=== PATIENT | female | born 1995 | race Hispanic/Latino ===

== ENCOUNTER 2021-07-16 07:04 | Day surgery (SDC) | payer SELFPAY ==
[2021-07-16 07:37] VITALS: BMI 29.5
[2021-07-16 08:37] LABS: Fetal Membranes Rupture No Membranes Rupture (No Rupture)
[2021-07-16] MEDS ORDERED: hydrALAZINE 20 MG/ML VIAL SLOW IVP PRN (09:29)
== END 2021-07-16 09:44 | disposition home health service (06) ==
LOC: EDBD → CSHLD/OP 07:04
PROVIDERS: ATTEND Obstetrics & Gynecology
DX: O99.891 Other specified diseases and conditions complicating pregnancy (principal); N89.8 Other specified noninflammatory disorders of vagina; O48.0 Post-term pregnancy; Z3A.40 40 weeks gestation of pregnancy
CPT/HCPCS: 84112; 99284

== ENCOUNTER 2021-07-17 11:45 | Inpatient (IN) | payer MEDICAID, SELFPAY ==
[2021-07-17 11:05] LABS: SARS-CoV-2 PCR by NAA Not Detected (NotDetected)
[~2021-07-17 11:45] MED LIST: Bupivacaine 0.25% HCL 30 ML VIAL ONE
[2021-07-17] MEDS ORDERED: Diphenoxylate HCl/Atropine Tablet PO PRN (13:02)
[2021-07-17] MEDS ORDERED: HYDROcodone/Acetaminophen 5/325 mg Tablet PO PRN (13:02)
[2021-07-17] MEDS ORDERED: Promethazine HCl 25 MG/ML VIAL IM PRN ×2 (13:02→16:18)
[2021-07-17] MEDS ORDERED: Ondansetron PF 4 MG/2 ML Vial IVP PRN ×2 (13:02→16:18)
[2021-07-17] MEDS ORDERED: Carboprost 250 MCG/ML AMP IM PRN (13:02)
[2021-07-17] MEDS ORDERED: hydrALAZINE 20 MG/ML VIAL SLOW IVP PRN (13:02)
[2021-07-17] MEDS ORDERED: Methylergonovine 0.2 MG/ML VIAL IM PRN (13:02)
[2021-07-17] MEDS ORDERED: Butorphanol Tartrate 1 MG/ML VIAL SLOW IVP PRN (13:02)
[2021-07-17] MEDS ORDERED: Misoprostol 200 MCG TAB PR PRN (13:02)
[2021-07-17] MEDS ORDERED: Lidocaine 1% (PF) 30 ML VIAL SC PRN (13:02)
[2021-07-17] MEDS ORDERED: Ibuprofen 800 MG TAB PO PRN (13:02)
[2021-07-17] MEDS ORDERED: NS w/ Oxytocin 30 units 500 ML IV SCH (13:15)
[2021-07-17] MEDS: Lactated Ringer's 1,000 ML IV SCH ×2 (13:23→15:10)
[2021-07-17 14:33] LABS: Hemoglobin 13.6 g/dL (12.0-15.5); Mean Corpuscular HGB CONC 32.1 g/dL (32.0-36.0); Mean Corpuscular Hemoglobin 25.4 pg (27.0-33.0); Mean Corpuscular Volume 79.1 fl (81.6-98.3); Mean Platelet Volume 9.8 fl (7.4-10.4); Platelet Count 374 10x3/uL (150-450); RBC Distribution Width 14.4 % (11.5-14.5); Red Blood Cell (RBC) Count 5.36 10x6/uL (3.90-5.03); White Blood Cell (WBC) Count 12.5 10x3/uL (3.5-10.5)
[2021-07-17 15:11] LABS: Hep B Surf Ag Non-Reactive S/CO (NonReactive)
[2021-07-17 15:12] LABS: Syphilis Antibody Nonreactive (Nonreactive); Syphilis Antibody Index 0.04 S/CO (<1.00 Non-Reactive)
[2021-07-17 15:13] LABS: HBSAg Index 0.38 S/CO (0-0.99)
[2021-07-17] MEDS ORDERED: Fentanyl 2 mcg/Bup 0.1% Cadd 100 ML ONE (15:33)
[2021-07-17] MEDS ORDERED: diphenhydrAMINE 50 MG/ML VIAL IVP PRN (16:18)
[2021-07-17] MEDS ORDERED: Lactated Ringer's 500 ML IV PRN (16:18)
[2021-07-17] MEDS ORDERED: Acetaminophen 325 MG TAB PO PRN (16:18)
[2021-07-17] MEDS ORDERED: Naloxone HCl 0.4 mg/ml Vial IVP PRN ×2 (16:18)
[2021-07-17] MEDS ORDERED: Hydrocerin (Eucerin) Cream 120 gm Jar TOP PRN (16:18)
[2021-07-17] MEDS ORDERED: ePHEDrine Sulfate 50 MG/10 ML VIAL SLOW IVP PRN (16:18)
[2021-07-17] MEDS ORDERED: Communication Order-Pharmacy FS SCH (16:30)
[2021-07-17] MEDS ORDERED: Fentanyl 2 mcg/Bupivacaine 0.1% Cassette 100 ML EPIDURAL SCH (16:30)
[2021-07-17 17:03] VITALS: BMI 29.2
[2021-07-17] MEDS: NS w/ Oxytocin 30 units 500 ML IV PRN ×2 (17:53→21:25)
[2021-07-17 19:25] LABS: HIV (1/2) Antibody/Antigen Non-Reactive (NonReactive); HIV 1/2 INDEX 0.13 S/CO (<1.00)
[2021-07-18] MEDS ORDERED: Ondansetron PF 4 MG/2 ML Vial IVP PRN (01:45)
[2021-07-18] MEDS ORDERED: Methylergonovine 0.2 MG/ML VIAL IM PRN (01:45)
[2021-07-18] MEDS ORDERED: Boostrix 0.5 ML (Tdap) VIAL IM ONE (01:45)
[2021-07-18] MEDS ORDERED: hydrALAZINE 20 MG/ML VIAL SLOW IVP PRN (01:45)
[2021-07-18] MEDS ORDERED: Bisacodyl 10 MG SUPP PR PRN (01:45)
[2021-07-18] MEDS ORDERED: Misoprostol 200 MCG TAB VAG PRN (01:45)
[2021-07-18] MEDS ORDERED: HYDROcodone/Acetaminophen 5/325 mg Tablet PO PRN ×2 (01:45)
[2021-07-18] MEDS ORDERED: Benzocaine-Menthol 82.5 ML CAN TOP PRN (01:45)
[2021-07-18] MEDS ORDERED: NS w/ Oxytocin 30 units 500 ML IV PRN (01:45)
[2021-07-18] MEDS ORDERED: Milk Of Magnesia 30 ML UDCUP PO PRN (01:45)
[2021-07-18] MEDS: Ibuprofen 800 MG TAB PO SCH ×3 (06:52→21:21)
[2021-07-18] MEDS: Ferrous Sulfate 325 MG TAB PO SCH ×2 (07:17→14:49)
[2021-07-18] MEDS: Docusate Calcium (SURFAK) 240 MG CAP PO SCH ×2 (08:31→21:22)
[2021-07-18] MEDS ORDERED: Prenatal Vitamin 1 TAB PO SCH (09:00)
[2021-07-19] MEDS: Ibuprofen 800 MG TAB PO SCH (05:58)
[2021-07-19] MEDS: Ferrous Sulfate 325 MG TAB PO SCH (07:14)
[2021-07-19 07:52] VITALS: BP 104/57; TEMP 98.3
[2021-07-19] MEDS: Docusate Calcium (SURFAK) 240 MG CAP PO SCH (08:16)
== END 2021-07-19 11:15 | disposition home or self-care (01) | DRG 806 ==
LOC: CSHLD/OP 11:45 → CSHLD 15:49 → CSHPP 07-18 00:10
PROVIDERS: ADMIT Obstetrics & Gynecology; ATTEND Obstetrics & Gynecology
PROC: 10E0XZZ Delivery of Products of Conception, External Approach (ICD-10-PCS; principal; 2021-07-17)
PROC: 10907ZC Drainage of Amniotic Fluid, Therapeutic from Products of Conception, Via Natural or Artificial Opening (ICD-10-PCS; 2021-07-17)
DX: O48.0 Post-term pregnancy (principal); O99.12 Other diseases of the blood and blood-forming organs and certain disorders involving the immune mechanism complicating childbirth; Z37.0 Single live birth; Z20.822 Contact with and (suspected) exposure to COVID-19; Z3A.40 40 weeks gestation of pregnancy; O77.0 Labor and delivery complicated by meconium in amniotic fluid; O69.1XX0 Labor and delivery complicated by cord around neck, with compression, not applicable or unspecified; D56.3 Thalassemia minor
CPT/HCPCS: 51702; 85027; 86780; 86850; 86900; 86901; 87340; 87389; 99285; J2590; J7120; S0020; U0003; U0005